=== PATIENT | male | born 1990 | race Caucasian/White ===

== ENCOUNTER 2018-02-23 20:52 | Emergency (ER) | payer OTHER ==
[~2018-02-23] VITALS: Ht 187.9 cm; Wt 90.7 kg
[~2018-02-23 20:52] MED LIST: AUGMENTIN 875875 MG PO; MOTRIN800 MG PO; PERCOCET 325 MG1 TA2 PO
== END 2018-02-23 23:05 | disposition home or self-care (01) ==
LOC: ED 20:52
DX: R59.0 Localized enlarged lymph nodes (principal)

== ENCOUNTER 2019-03-14 19:27 | Emergency (ER) | payer OTHER ==
[~2019-03-14] VITALS: Ht 187.9 cm; Wt 90.7 kg
[~2019-03-14 19:27] MED LIST changes: +VYVANSE50 MG PO
[2019-03-14] MEDS ORDERED: CIPRO500 MG PO (19:58)
[2019-03-14] MEDS ORDERED: ANTIBIOTIC28.4 GM T (19:58)
== END 2019-03-14 21:38 | disposition home or self-care (01) ==
LOC: ED 19:27
DX: S91.311A Laceration without foreign body, right foot, initial encounter (principal); Z79.899 Other long term (current) drug therapy; W25.XXXA Contact with sharp glass, initial encounter; Y93.01 Activity, walking, marching and hiking; Y92.89 Other specified places as the place of occurrence of the external cause; Y99.8 Other external cause status

== ENCOUNTER 2019-04-06 22:30 | Emergency (ER) | payer OTHER ==
[~2019-04-06] VITALS: Ht 177.8 cm; Wt 90.7 kg
--- NOTE | ~2019-04-06 | EKG ---
[place], [place] ELECTROCARDIOGRAM REPORT NAME: EZEKIEL RUIZ UNIT #: [id number] ROOM: DOCTOR: EPIPHANY DRAFT REPORT BIRTHDATE: [birth year] [facility] Test Date: 2019-04-06 Test Time: 22:37:29 Pat Name: EZEKIEL RUIZ Department: ED Room: 2 Gender: M Chief Architect: Luis Javed : 1990 Requested By: KELSIE CASTILLO Order Number: [id number] Reading MD: Isaiah Mcdonald MD Measurements Intervals [place] Rate: 106 P: 55 UT: 163 QRS: 39 QRSD: 101 T: 51 QT: 364 QTc: 484 Interpretive Statements Sinus tachycardia Borderline prolonged QT interval Electronically Signed On 04-08-2019 4:13:52 PDT by Isaiah Mcdonald MD CM:EKGRPT:ELECTROCARDIOGRAM REPORT [id number] KELSIE BONE DRAFT REPORT KLESIE CASTILLO DO
[~2019-04-06 22:30] MED LIST changes: +ANTIBIOTIC28.4 GM T; +CIPRO500 MG PO
[2019-04-06 23:13] LABS: BASO % 0.8 % (0.0-1.0); EOS # 0.1 10*3/uL (0.0-0.4); EOS % 1.9 % (1.0-4.0); HEMATOCRIT 40.8 % (42.0-52.0); HEMOGLOBIN 13.8 g/dl (14.0-18.0); LYMPH # 1.5 10*3/uL (1.3-4.4); LYMPH % 31.3 % (27.0-41.0); MEAN CELL VOLUME 90.5 fl (80.0-94.0); MEAN CORPUSCULAR HGB 30.6 pg (27.0-31.0); MEAN CORPUSCULAR HGB CONC 33.8 g/dl (33.0-37.0); MEAN PLATELET VOLUME 9.5 fl (9.6-12.3); MONO # 0.6 10*3/uL (0.1-1.0); MONO % 12.4 % (3.0-9.0); NEUT # 2.6 10*3/uL (2.3-7.9); NEUT % 53.4 % (47.0-73.0); PLATELET COUNT AUTOMATED 150 10*3/uL (130-400); RED BLOOD COUNT 4.51 10*6/uL (4.50-5.90); RED CELL DISTRI WIDTH 12.1 % (0-14.5); WHITE BLOOD COUNT 4.8 10*3/uL (4.8-10.8)
[2019-04-06 23:26] LABS: ACT PARTIAL THROMBO TIME 29.6 SECONDS (20.0-32.1)
[2019-04-06 23:28] LABS: ALBUMIN 4.2 gm/dl (3.1-4.5); ALKALINE PHOSPHATASE 92 U/L (45-117); BUN 15 mg/dl (7-24); CHLORIDE 107 mmol/L (98-107); CPK 242 U/L (39-308); CREATININE 1.18 mg/dL (0.70-1.30); LIPASE 105 U/L (73-393); PHOSPHOROUS 3.3 mg/dL (2.5-4.9); POTASSIUM 3.8 mmol/L (3.5-5.1); SGOT/AST 20 IU/L (3-35); SGPT/ALT 23 U/L (12-78); SODIUM 142 mmol/L (136-145); TOTAL PROTEIN 6.9 gm/dL (6.4-8.2)
[2019-04-06 23:30] LABS: TROPONIN I < 0.015 ng/ml (<0.045)
== END 2019-04-06 23:37 | disposition short-term general hospital (02) ==
LOC: ED 22:30
PROVIDERS: Student in an Organized Health Care Education/Training Program
DX: T75.09XA Other effects of lightning, initial encounter (principal); I70.202 Unspecified atherosclerosis of native arteries of extremities, left leg; R20.2 Paresthesia of skin; Z79.2 Long term (current) use of antibiotics; Z79.899 Other long term (current) drug therapy; Y93.89 Activity, other specified; Y92.828 Other wilderness area as the place of occurrence of the external cause

== ENCOUNTER → 2019-08-22 | Outpatient (CLI) | payer OTHER ==
[2019-08-22 10:38] LABS: BASO # 0.1 10*3/uL (0.0-0.1); BASO % 1.1 % (0.0-1.0); EOS # 0.1 10*3/uL (0.0-0.4); EOS % 2.7 % (1.0-4.0); HEMATOCRIT 45.1 % (42.0-52.0); HEMOGLOBIN 14.9 g/dl (14.0-18.0); LYMPH # 1.5 10*3/uL (1.3-4.4); LYMPH % 33.4 % (27.0-41.0); MEAN CELL VOLUME 90.6 fl (80.0-94.0); MEAN CORPUSCULAR HGB 29.9 pg (27.0-31.0); MEAN PLATELET VOLUME 9.3 fl (9.6-12.3); MONO # 0.4 10*3/uL (0.1-1.0); MONO % 7.8 % (3.0-9.0); NEUT # 2.5 10*3/uL (2.3-7.9); NEUT % 54.8 % (47.0-73.0); PLATELET COUNT AUTOMATED 161 10*3/uL (130-400); RED BLOOD COUNT 4.98 10*6/uL (4.50-5.90); RED CELL DISTRI WIDTH 12.3 % (0-14.5); WHITE BLOOD COUNT 4.5 10*3/uL (4.8-10.8)
[2019-08-22 11:07] LABS: ALBUMIN 4.1 gm/dl (3.1-4.5); ALKALINE PHOSPHATASE 70 U/L (45-117); BUN 14 mg/dl (7-24); CHLORIDE 108 mmol/L (98-107); CHOLESTEROL 149 mg/dL (<200); HDL CHOLESTEROL 62 mg/dl (40-60); LDL CHOLESTEROL 75 mg/dL (9-159); POTASSIUM 4.2 mmol/L (3.5-5.1); SGOT/AST 16 IU/L (3-35); SGPT/ALT 30 U/L (12-78); SODIUM 142 mmol/L (136-145); TOTAL PROTEIN 7.3 gm/dL (6.4-8.2); TRIGLYCERIDES 62 mg/dl (<150); VLDL CHOLESTEROL 12 mg/dL (6-40)
== END | disposition home or self-care (01) ==
LOC: LAB 09:43
PROVIDERS: Nurse Practitioner Family
DX: M54.5 Low back pain (principal); M54.12 Radiculopathy, cervical region; I83.92 Asymptomatic varicose veins of left lower extremity; G89.29 Other chronic pain

== ENCOUNTER → 2020-07-12 | Outpatient (CLI) | payer OTHER | END | disposition home or self-care (01) | LOC: COVID19 12:14 | PROVIDERS: ATTEND Nurse Practitioner Family | DX: R50.9 Fever, unspecified (principal); Z20.828 Contact with and (suspected) exposure to other viral communicable diseases ==

== ENCOUNTER 2025-05-21 22:25 | Emergency (ER) | payer OTHER ==
[2025-05-21] MEDS ORDERED: Ondansetron Hydrochloride 4 MG/2 ML VIAL IV ONE (22:40)
[2025-05-21 23:06] LABS: BASO # 0.1 10*3/uL (0.0-0.1); BASO % 0.7 % (0.0-1.0); EOS # 0.1 10*3/uL (0.0-0.4); EOS % 1.6 % (1.0-4.0); MEAN CELL VOLUME 89.1 fl (80.0-94.0); MEAN CORPUSCULAR HGB 30.9 pg (27.0-31.0); MEAN PLATELET VOLUME 8.8 fl (9.6-12.3); MONO # 0.7 10*3/uL (0.1-1.0); MONO % 9.8 % (3.0-9.0); NEUT # 3.8 10*3/uL (2.3-7.9); NEUT % 55.1 % (47.0-73.0); NUCLEATED RED BLOOD CELL 0.0 % (0.0-0.0); NUCLEATED RED BLOOD CELL 0.0 10*3/uL (0.0-0.0); PLATELET COUNT AUTOMATED 168 10*3/uL (130-400); RED CELL DISTRI WIDTH 12.1 % (0-14.5)
[2025-05-21 23:28] LABS: BUN 13 mg/dl (9-23); SGPT/ALT 29 U/L (5-49)
[2025-05-22] MEDS ORDERED: HYDROCODONE-AC1 EAC1 PO (00:33)
[2025-05-22] MEDS ORDERED: FLOMAX0.4 MG PO (00:33)
[2025-05-22] MEDS ORDERED: Ondansetron4 MG PO (00:33)
== END 2025-05-22 00:49 | disposition home or self-care (01) ==
LOC: ED 22:25
PROVIDERS: Internal Medicine
DX: N20.1 Calculus of ureter (principal); N17.9 Acute kidney failure, unspecified; N13.4 Hydroureter; Z79.899 Other long term (current) drug therapy